=== PATIENT | female | born 1955 | race Caucasian/White ===

== ENCOUNTER 2019-04-01 11:12 | Inpatient (IN) ==
[2019-04-01] MEDS ORDERED: ASPIRIN PO ONE (11:18)
[2019-04-01] MEDS ORDERED: ALBUTEROL NEB INH ONE (11:26)
[2019-04-01] MEDS ORDERED: DUONEB (A & A) INH ONE (11:26)
[2019-04-01] MEDS ORDERED: PULMICORT INH ONE (11:26)
[2019-04-01] MEDS ORDERED: SOLU-MEDROL IV ONE (11:26)
[2019-04-01 12:01] LABS: BASO# 0.04 X1000 (0.0-0.2); BASO% 0.2 % (0.0-0.8); EOS# 0.18 X1000 (0.0-0.7); EOS% 0.8 % (0.0-10.0); HEMATOCRIT 36.9 % (37.0-47.0); IMM GRAN# 0.05 X1000 (0.0-0.04); IMM GRAN% 0.2 % (0.0-0.5); LYMPH# 15.17 X1000 (1.2-3.4); MCH 39.2 PG (27-31); MCHC 35.2 g/dL (33-37); MCV 111.1 FL (81-99); MONO# 1.24 X1000 (0.11-0.59); MONO% 5.7 % (1.7-9.3); MPV 10.1 FL (7.4-10.4); NEUT# 4.99 X1000 (1.4-6.5); NEUT% 23.1 % (42.2-75.2); RBC 3.32 XMIL (4.2-5.4); RDW 15.4 % (11.5-14.5)
[2019-04-01 12:05] LABS: INR 0.88; PROTIME 12.7 Seconds (11.0-16.0)
--- NOTE | 2019-04-01 12:05 | Diag Imaging Result Doc PS360 ---
EXAM: CHEST-2 VIEWS - 04/01/2019 HISTORY: sob TECHNIQUE: Chest two views COMPARISON: None. FINDINGS: Heart size is normal. There are apparent COPD changes. There is small left lower lobe granuloma from old granulomatous disease. There is no consolidation, pleural effusion, or pneumothorax identified. There is thoracic spondylosis noted. IMPRESSION: Apparent COPD changes. No other evidence of acute disease. Electronically signed by Henry Staton 04/01/2019 12:03 PM
[2019-04-01 12:06] LABS: PTT 28.4 Seconds (22.3-41.8)
[2019-04-01 12:22] LABS: ALBUMIN 4.3 g/dL (3.5-5.0); CALCIUM 8.7 mg/dL (8.8-10.2); CREATININE 1.1 mg/dL (0.5-0.9); TOTAL BILIRUBIN 0.61 mg/dL (0.20-1.00); TOTAL PROTEIN 6.5 g/dL (6.3-8.3)
[2019-04-01 12:23] LABS: PLT 205 X1000 (130-400); WBC 21.67 X1000 (4.8-10.8)
[2019-04-01 12:26] LABS: ANISOCYTOSIS 3+; EOS 1 % (1-10); LYMPHS 65 % (21-51); MONO 6 % (1-9); SEGS 26 % (42-75)
[2019-04-01 12:27] LABS: HOWELL-JOLLY BODIES 2+
[2019-04-01] MEDS ORDERED: TYLENOL PO PRN (13:02)
[2019-04-01] MEDS ORDERED: ZOFRAN IV PRN (13:02)
[2019-04-01] MEDS ORDERED: DUONEB (A & A) INH PRN (13:05)
[2019-04-01] MEDS: ZITHROMAX PO SCH (13:44)
[2019-04-01] MEDS: LOVENOX SUBQ SCH (13:44)
[2019-04-01] MEDS: NS 1,000 ML IV SCH ×2 (13:44→20:15)
[2019-04-01] MEDS: ROCEPHIN 1 GM in NS 50 ML IV SCH (13:45)
--- NOTE | 2019-04-01 14:04 | HISTORY AND PHYSICAL ---
CHIEF COMPLAINT: Shortness of breath. HISTORY OF PRESENT ILLNESS: This is a 63-year-old female with a 3-lcxk-k-day history of smoking, COPD, and prior opiate addiction. She presents to the emergency room complaining of about 24 hours of shortness of breath, nasal congestion, headache, cough, and nausea. She states that she was helping her trim crepe myrtle trees yesterday. She carried limbs to a pile, and within a few hours she had nasal stuffiness, felt short of breath, and had some generalized body aches and chills. She denied a productive cough, any chest pain, palpitations, any PND or orthopnea. PAST MEDICAL HISTORY: COPD and leukemia. PAST SURGICAL HISTORY: Hysterectomy, total knee replacement, right ankle surgery. SOCIAL HISTORY: She smokes 2 packs a day of cigarettes. She does use marijuana. She denies any alcohol use. ALLERGIES: No known drug allergies. HOME MEDICATIONS: 1. Suboxone 8/2 mg film 2 films every day. 2. Hydroxyzine 25 mg 1 by mouth twice a day. REVIEW OF SYSTEMS: Discussed with patient with pertinent positives stated in HPI. She denied any syncope, dizziness, chest pain, palpitations, or productive cough; any PND or orthopnea; recent weight loss or weight gain; any night sweats; any vomiting, diarrhea, constipation, black or bloody vomitus or stools; any hematuria, dysuria, frequency, or urgency. PHYSICAL EXAMINATION: GENERAL: This is a 63-year-old female who is sitting up on the stretcher in the emergency room in no distress. VITAL SIGNS: Blood pressure is 113/53 with a heart rate of 71, respirations are 17, temperature is 99.2 degrees oral with O2 saturations that under 92% to 93% on room air and 94% to 95% on 2 L nasal cannula. HEENT: Head is normocephalic, atraumatic. Mucous membranes are moist. NECK: Supple with trachea midline. CARDIOVASCULAR: Regular rate and rhythm. S1 and S2 are appreciated. She has no lower extremity edema. Calves are nontender to palpation bilateral with peripheral pulses palpable x4 extremities. PULMONARY: Breath sounds are diminished throughout. She has prolonged expiration. She does have some faint expiratory wheezes noted primarily in the right upper lobe. Chest rises and falls symmetric with respiration. Chest wall is nontender to palpation. GASTROINTESTINAL: Soft, nontender, nondistended. Bowel sounds in all 4 quadrants. GENITOURINARY: She has no CVA or suprapubic tenderness. SKIN: Warm and dry without rashes or lesions noted. NEUROLOGIC: She is alert and oriented x3. LABORATORY DATA: WBC is 21.6 with hemoglobin 13, hematocrit 36.9, and platelets are 205. INR 0.88. Sodium 142, potassium 4, BUN 14, creatinine 1.1 with a glucose of 119. Troponin is negative. ProBNP is 734. Chest x-ray revealed apparent COPD changes, otherwise no evidence of acute distress. ASSESSMENT AND PLAN: 1. Chronic obstructive pulmonary disease with mild exacerbation. Start DuoNeb q.4 hours or q.2 hours p.r.n. with incentive spirometer every 4 hours. Steroids to taper. Supplemental oxygen as needed. 2. Leukemia. The patient is not undergoing treatment. She states that she has labs drawn every 3 months, and as long as labs stay stable then she will have no further treatment. We will consult Dr. Nancy Lyles in the morning. 3. Leukocytosis. White count is 24. They state that her white count has been lower than 14 over the last few blood tests. We will redraw labs in the morning and as stated above Dr. Nancy Lyles will be consulted. 4. Tobacco use and abuse. She states she smokes 2 packs of cigarettes a day. We will start a nicotine patch as needed I did attempt to discuss smoking cessation with the patient and her and neither were interested in discussing this at this time. For DVT prophylaxis, we will give Lovenox and GI prophylaxis Prilosec. Will have CBC with differential, a CMP, and a PA and lateral chest x-ray in the morning. We will obtain blood cultures x2 as well as urine culture and urinalysis. Further treatments pending hospital course. Dictated by HEBER Gallegos for Gigi Hernandez MD cc: HEBER Gallegos MD
[2019-04-01 14:06] LABS: URINE SOURCE CLEAN CATCH
[2019-04-01 14:09] LABS: BILIRUBIN URINE NEGATIVE (NEGATIVE); BLOOD URINE MODERATE (NEGATIVE); COLOR YELLOW; GLUCOSE URINE NEGATIVE (NEGATIVE); KETONE URINE NEGATIVE (NEGATIVE); LEUKOCYTES URINE SMALL (NEGATIVE); NITRITE URINE NEGATIVE (NEGATIVE); PROTEIN URINE NEGATIVE (NEGATIVE); SP GRAVITY URINE 1.016; TURBIDITY URINE CLEAR (CLEAR); UROBILINOGEN URINE NORMAL (NORMAL)
[2019-04-01 14:10] LABS: UR EPITHELIAL CELLS <10 /HPF (<10); URINE BACTERIA 1+ /HPF; URINE RBC <10 /HPF (<10); URINE WBC <10 /HPF (<10)
--- NOTE | 2019-04-01 14:18 | PROVIDER DOCUMENTATION ---
This chart was entered by Laura Seaman Scribe, acting as scribe for Aldair Mejia MD. HPI-Respiratory General - General Chief Complaint: Shortness of Breath Stated Complaint: SOB Time Seen by Provider: 04/01/19 11:18 Source: patient Allergies/Adverse Reactions: Patient Allergies Allergy/AdvReac Type Severity Reaction Status Date / Time No Known Allergies Allergy Verified 04/01/19 11:50 Home Medications: Home Medication List Medication Instructions Recorded Confirmed Last Taken Type Buprenorphine/Naloxone S.l. 1 ea SL BID #60 film 05/07/18 04/01/19 Rx [Suboxone 8 mg/2 mg Film] Diclofenac Sodium 50 mg PO BID 04/01/19 04/01/19 04/01/19 History Hydroxyzine [Atarax] 25 mg PO BID 04/01/19 04/01/19 04/01/19 History Phenylephrine/Acetaminophn/Cpm 1 ea PO Q12H PRN 04/01/19 04/01/19 04/01/19 History [Allergy Multi-Symptom Cap[place]] - History of Present Illness-Resp Nature of Presenting Problem: 63 y/o female presents to ED with SOB, congestion, headache, cough, and nausea onset yesterday. of pt is at bedside and reports her symptoms began after he cut off a crape myrtle limb yesterday. Pt states she has hx COPD and is a smoker. Pt is alert and oriented. Quality of Pain: reports: none Severity in ED: reports: moderate Onset/Duration: reports: 24 hours ago Timing: reports: still present Context: reports: other (hx COPD) Exposure: reports: other (hx COPD) Cough Quality/Degree: reports: dry cough Episode Frequency: chronic episodes (hx COPD) Current Respiratory Medication Therapy: Initiated see nurses note Modifying Factors: improves with: nothing Associated Symptoms: reports: cough, headache, nasal congestion, shortness of breath, short of breath, other (nausea) Similar Symptoms Previously?: Yes (hx COPD) Recently seen or treated by another doctor?: No Review of Systems - Adult - REVIEW OF SYSTEMS - ADULT Constitutional: denies: chills, fever Eyes: reports: no symptoms reported Ears, Nose, Mouth & Throat: reports: sinus problem (congestion). denies: epistaxis Cardiovascular: denies: chest pain, palpitations Respiratory: reports: cough, shortness of breath Gastrointestinal: reports: nausea. denies: abdominal pain, diarrhea, vomiting Genitourinary: reports: no symptoms reported Musculoskeletal: denies: back pain, joint pain Integumentary: reports: no symptoms reported Neurological: reports: headache/migraines. denies: dizziness/vertigo, seizure Psychiatric: reports: no symptoms reported Endocrine: reports: no symptoms reported Hematologic/Lymphatic: reports: no symptoms reported Allergic/Immunologic: reports: no symptoms reported All Other Systems: Reviewed and Negative Past History - Adult - PAST MEDICAL HISTORY-ADULT Review of Records: reports: Old Records Reviewed, Nursing Assessment Review, Medications Reviewed Major Childhood Illnesses: reports: denies history Cardiovascular: reports: other (hypotension) Respiratory: reports: COPD Gastrointestinal: reports: ulcer Obstetrical/Gynecological: reports: denies history Genitourinary: reports: denies history Musculoskeletal: reports: arthritis, chronic pain (knee) Neurological: reports: denies history Psychiatric: reports: anxiety, depression, other (hx drug abuse) Endocrine/Immune: reports: Leukemia Other Conditions: reports: denies history - PRIOR SURGERIES/PROCEDURES Surgical/Procedure History: reports: hysterectomy, orthopedic (extremity) (R ankle), joint replacement (knee) - IMMUNIZATION STATUS Childhood Immunizations: See Nurse Assessment Flu Vaccine: See Nurse Assessment - FAMILY HISTORY Family History: reviewed, not pertinent - SOCIAL HISTORY Smoking: greater than 1 pack/day Provider spent 3-5 mins advising pt. on dangers of tobacco.: Discussed manners to quit use, and f/u contacts for add'l counseling. Substance Use: none presently/history of abuse (currently taking suboxone), opiates Alcohol Use Frequency: never Living Situation: family Physical Exam-General - PHYSICAL EXAM-ADULT Initial Vital Signs Reviewed: Yes - CONSTITUTIONAL General Appearance: appears well, alert, mild distress - EYES Eyes: PERRL/EOMI, pink conjunctivae - HEAD, EARS, NOSE, MOUTH & THROAT HENMT: normocephalic/atraumatic, moist mucous membranes, normal ENT inspection - RESPIRATORY Respiratory: chest non-tender, lungs clear, normal breath sounds, no pleuratic chest pain, respiratory distress (mild), accessory muscle use, increased rate - CARDIOVASCULAR Cardiovascular: normal peripheral pulses, regular rate, rhythm - MUSCULOSKELETAL Extremity: normal range of motion, non-tender, normal gait, no pedal edema. negative: swelling - SKIN Integumentary: normal color, warm/dry - NEUROLOGIC Neurologic: grossly normal - PSYCHIATRIC Psych/Mental Status: normal mood/affect, normal thought content, normal thought process - HEART Score HEART Score: History: Slightly Suspicious HEART Score: ECG: Normal HEART Score: Age: 45-65 Years HEART Score: Risk Factors for Atherosclerotic Disease: No Risk Factors Known HEART Score: Troponin: < or = Normal Limit Total HEART Score:: 1 Progress - PLAN OF CARE/RESULTS Progress/Plan/Lab Results: Vital Signs - 8 hr 04/01/19 11:14 04/01/19 12:05 04/01/19 12:30 Temperature 99.2 F Pulse Rate 74 63 Respiratory Rate 24 18 18 Blood Pressure 178/50 131/68 131/68 O2 Sat by Pulse Oximetry 98 95 94 L Laboratory Results - last 24 hr 04/01/19 04/01/19 04/01/19 11:45 11:45 11:45 WBC 21.67 H RBC 3.32 L Hgb 13.0 Hct 36.9 L MCV 111.1 H MCH 39.2 H MCHC 35.2 RDW Std Deviation 15.4 H Plt Count 205 MPV 10.1 Immature Gran % (Auto) 0.2 Neut % (Auto) 23.1 L Lymph % (Auto) 70.0 H [place] % (Auto) 5.7 Eos % (Auto) 0.8 Baso % (Auto) 0.2 Immature Gran # (Auto) 0.05 H Neut # (Auto) 4.99 Lymph # (Auto) 15.17 H [place] # (Auto) 1.24 H Eos # (Auto) 0.18 Baso # (Auto) 0.04 Segmented Neutrophils 26 L Lymphocytes 65 H Monocytes 6 Eosinophils 1 Pathologist Review Atypical Lymphocytes 2.0 Anisocytosis 3+ Macrocytosis 3+ [place] Bodies 2+ PT INR PTT (Actin FS) Sodium 142 Potassium 4.0 Chloride 106 Carbon Dioxide 23 L Anion Gap 13 BUN 14 Creatinine 1.1 H Estimated GFR/1.73 m2 50 BUN/Creatinine Ratio 13 Glucose 119 H Calculated Osmolality 285 Calcium 8.7 L Total Bilirubin 0.61 AST 35 H ALT 28 Alkaline Phosphatase 126 H Creatine Kinase 99 Troponin T Nfv-[id number]-Lybwfrojxdh Pept 734 H Total Protein 6.5 Albumin 4.3 Globulin 2.2 Albumin/Globulin Ratio 2.0 04/01/19 04/01/19 11:45 11:45 WBC RBC Hgb Hct MCV MCH MCHC RDW Std Deviation Plt Count MPV Immature Gran % (Auto) Neut % (Auto) Lymph % (Auto) [place] % (Auto) Eos % (Auto) Baso % (Auto) Immature Gran # (Auto) Neut # (Auto) Lymph # (Auto) [place] # (Auto) Eos # (Auto) Baso # (Auto) Segmented Neutrophils Lymphocytes Monocytes Eosinophils Pathologist Review Atypical Lymphocytes Anisocytosis Macrocytosis [place] Bodies PT 12.7 INR 0.88 PTT (Actin FS) 28.4 Sodium Potassium Chloride Carbon Dioxide Anion Gap BUN Creatinine Estimated GFR/1.73 m2 BUN/Creatinine Ratio Glucose Calculated Osmolality Calcium Total Bilirubin AST ALT Alkaline Phosphatase Creatine Kinase Troponin T < 0.010 Oai-Z-Gfxmzrhwhny Pept Total Protein Albumin Globulin Albumin/Globulin Ratio Orders Category Date Time Status Cardiac Monitoring DIRECTED Care 04/01/19 11:18 Active Oxygen Therapy- ED Nursing DIRECTED Care 04/01/19 11:18 Active Saline Loc NOW Care 04/01/19 11:18 Active CHEST-2 VIEWS [RAD] Stat Exams 04/01/19 11:18 Completed CBC WITH ELECTRONIC DIFF [HEME] Stat Lab 04/01/19 11:45 Completed CK PROFILE [SP CHEM] Stat Lab 04/01/19 11:45 Completed COMPREHENSIVE METABOLIC PANEL [CHEM] Stat Lab 04/01/19 11:45 Completed PRO B-NATRIURETIC PEPTIDE Stat Lab 04/01/19 11:45 Completed PROTIME WITH INR [COAG] Stat Lab 04/01/19 11:45 Completed PTT [COAG] Stat Lab 04/01/19 11:45 Completed TROPONIN T Stat Lab 04/01/19 11:45 Completed Albuterol 2.5MG/Ipratrop 0.5MG [Duoneb (A & A)] Med 04/01/19 11:26 Discontinued 3 ml INH NOW ONE Albuterol [Albuterol Neb] Med 04/01/19 11:26 Discontinued 5 mg INH NOW ONE Aspirin Med 04/01/19 11:18 Discontinued 325 mg PO NOW ONE Budesonide [Pulmicort] Med 04/01/19 11:26 Discontinued 0.5 mg INH NOW ONE Methylprednisolone Sod Succ [Solu-Medrol] Med 04/01/19 11:26 Discontinued 125 mg IV NOW ONE Aerosol Treatments Routine Oth 04/01/19 11:26 Completed Aerosol Treatments Stat Oth 04/01/19 11:26 Completed CP/SOB/Palp >45 yrs of Age Stat Oth 04/01/19 11:18 Ordered EKG [EKG] Stat Ther 04/01/19 11:18 Ordered Result Diagrams: 04/01/19 11:45 04/01/19 11:45 - EKG 1 Time of EKG reading by physician:: 11:25 EKG Read and Signed by:: Aldair Mejia EKG Interpretation (*Must complete 3 of following elements*): Abnormal Rate: 59 Rhythm: Junctional [place]: normal QRS: normal [place] Interval: normal ST Wave: normal - XRAY 1 XRAY Study: Chest Impression: Abnormal ([facility] [address] [facility] [address], [address], [place] [address] Department of Imaging Patient: MARY ADKINSADM Date: 04/01/19#: [id number] : 1955DM Status: [facility]#: [id number] Age/Sex: 63/FRoom/Bed: Loc: ED Ordering Physician: Aldair Mejia MD Family Physician: Rich Rossi Reason for Procedure: sob Signed EXAM: CHEST-2 VIEWS - 04/01/2019 HISTORY: sob TECHNIQUE: Chest two views COMPARISON: None. FINDINGS: Heart size is normal. There are apparent COPD changes. There is small left lower lobe granuloma from old granulomatous disease. There is no consolidation, pleural effusion, or pneumothorax identified. There is thoracic spondylosis noted. IMPRESSION: Apparent COPD changes. No other evidence of acute disease. Electronically signed by Henry Staton 04/01/2019 12:03 PM 04/01/19 1203 Interpreting Physician: Henry Staton MD Dictated Date/Time: 04/01/19 1202 cc: Aldair Mejia MD; Rich Rossi) - CONSULTS/PCP/HOSPITALIST Notification #1 *Consult/PCP/Hospitalist*: HEBER Mes[place] for hospitalist Time Discussed: 12:46 Reason/Comments: COPD exacerbation; elevated WBC Consult Disposition: Admit Departure - Departure Date of Disposition Decision: 04/01/19 Time of Disposition Decision: 12:14 DIAGNOSIS: COPD exacerbation Disposition: ADMITTED INPATIENT 09 Certified Medical Emergency: Emergent Condition: Good Additional Freetext Instructions: ED Follow Up Instructions: You have been treated by a care provider in the Emergency Department. These instructions are being provided to you so you can have an understanding of how to care for yourself upon discharge. Upon discharge from the Emergency Department, you are responsible for making arrangements for follow-up care by a physician of your choice. Take all prescribed medications as directed. Return to the Emergency Department immediately for any new or worsening symptoms. You may call the Physician Referral phone number at [phone] to obtain a list of Physicians who are taking new patients. Referrals and Follow-Ups: Rich Rossi [Primary Care Provider] - Discharge Education: Steps to Quit Smoking, [id number] - Critical Care Note This patient required my direct & personal management of CC.: No Attestation - Physician/ BRIA Attestation Patient care was provided by Advanced Practice Provider:: No The physician spent face to face time with patient:: Yes Advanced Practice Provider documentation review:: Supervising physician onsite and consulted in the evaluation and care of this patient. The physician did have a face to face encounter with the patient. This chart was documented by the indicated scribe, (Laura Seaman Scribe) and accurately reflects the services I performed and decisions made by me, Aldair Mejia MD, as attested by the provider's signature.
[2019-04-01] MEDS ORDERED: XOPENEX NEB INH PRN (14:48)
[2019-04-01] MEDS ORDERED: NS NEB INH PRN (15:00)
[2019-04-01] MEDS: NICODERM PATCH TD PRN (15:25)
[2019-04-01] MEDS ORDERED: DUONEB (A & A) INH SCH (15:30)
[2019-04-01] MEDS: ATROVENT NEB INH SCH ×3 (16:01→23:10)
[2019-04-01] MEDS: XOPENEX NEB INH SCH ×3 (16:01→23:10)
[2019-04-01] MEDS: SOLU-MEDROL IV SCH (20:15)
[2019-04-02] MEDS: XOPENEX NEB INH SCH ×6 (03:00→22:30)
[2019-04-02] MEDS: ATROVENT NEB INH SCH ×6 (03:00→22:30)
[2019-04-02] MEDS: NS 1,000 ML IV SCH ×3 (04:29→17:39)
[2019-04-02] MEDS: SOLU-MEDROL IV SCH ×2 (04:49→17:39)
[2019-04-02] MEDS: PRILOSEC PO SCH (06:25)
--- NOTE | 2019-04-02 07:39 | EKG Report ---
Test Performed on : 04/01/2019 11:25:49 AM Test Reason : sob Blood Pressure : / mmHG Vent. Rate : 059 BPM Atrial Rate : 058 BPM P-R Int : 000 ms QRS Dur : 078 ms QT Int : 408 ms P-R-T Axes : 000 073 065 degrees QTc Int : 403 ms Junctional rhythm. Abnormal ECG No previous ECGs available Unconfirmed Result
--- NOTE | 2019-04-02 07:48 | Diag Imaging Result Doc PS360 ---
EXAM: CHEST-2 VIEWS HISTORY: COPD exacerbation, leukocytosis TECHNIQUE: Chest two views COMPARISON: 04/01/2019 FINDINGS: The lungs are hyperexpanded. The heart is not enlarged. The vessels are not distended. There are no infiltrates. No pleural effusions. The overall appearance is similar to the prior exam. IMPRESSION: Emphysema. No definite pneumonia. Electronically signed by Bob Jamil 04/02/2019 7:46 AM
[2019-04-02 08:05] LABS: BASO# 0.01 X1000 (0.0-0.2); BASO% 0.1 % (0.0-0.8); HEMATOCRIT 31.1 % (37.0-47.0); HEMOGLOBIN 10.9 g/dL (12.0-16.0); IMM GRAN# 0.03 X1000 (0.0-0.04); IMM GRAN% 0.2 % (0.0-0.5); LYMPH# 10.81 X1000 (1.2-3.4); MCH 39.2 PG (27-31); MCV 111.9 FL (81-99); MONO# 0.49 X1000 (0.11-0.59); MONO% 2.9 % (1.7-9.3); MPV 10.6 FL (7.4-10.4); NEUT# 5.56 X1000 (1.4-6.5); NEUT% 32.8 % (42.2-75.2); PLT 165 X1000 (130-400); RBC 2.78 XMIL (4.2-5.4); RDW 15.3 % (11.5-14.5)
[2019-04-02 08:16] LABS: ALB/GLOB RATIO 1.8; ALBUMIN 3.8 g/dL (3.5-5.0); CALCIUM 8.5 mg/dL (8.8-10.2); POTASSIUM 3.9 mmol/L (3.5-5.1); TOTAL BILIRUBIN 0.28 mg/dL (0.20-1.00); TOTAL PROTEIN 5.9 g/dL (6.3-8.3)
[2019-04-02] MEDS ORDERED: SUBOXONE 8 MG/2 MG FILM SL SCH (09:00)
[2019-04-02 09:36] LABS: BANDS 8 % (0-1); LYMPHS 31 % (21-51); MONO 3 % (1-9); SEGS 57 % (42-75)
[2019-04-02] MEDS: ZITHROMAX PO SCH (09:56)
[2019-04-02] MEDS: ATARAX PO SCH ×2 (09:56→20:37)
[2019-04-02] MEDS: SUBOXONE 8 MG/2 MG SL SCH ×2 (09:56→20:36)
[2019-04-02] MEDS: NICODERM PATCH TD PRN (12:39)
[2019-04-02] MEDS: ROCEPHIN 1 GM in NS 50 ML IV SCH (14:16)
[2019-04-02] MEDS: LOVENOX SUBQ SCH (14:17)
--- NOTE | 2019-04-02 21:29 | PROGRESS NOTE ---
DATE: 04/02/2019 SUBJECTIVE: This patient is lying comfortably in bed. She is still complaining of shortness of breath but compared with yesterday she feels better. Her WBC decreased from 21 to 16, pending Hematology/Oncology Department evaluation and recommendations. OBJECTIVE: Vital signs: Temperature 97.4, pulse 81, respiratory rate 15, blood pressure 125/54, oxygen saturation 96% on 1.5 L nasal cannula. HEENT: Head is normocephalic, no trauma. PERRLA. Neck: Supple. No JVD. No masses. Central trachea. Chest: Decreased breath sounds globally with prolonged expiratory phase, coarse breath sounds bilaterally, mostly at the bases. No wheezing today. Abdomen: Soft, nondistended and nontender. No hepatosplenomegaly. Extremities: No edema. No clubbing. No cyanosis. Neurologic: The patient is alert and oriented x3. She is hard of hearing. LABORATORY DATA: WBC 16.9, hemoglobin 10.9, hematocrit 31.1, and platelets 165. Sodium 140, potassium 3.9, chloride 109, bicarbonate 21, BUN 14, creatinine 1, glucose 163, calcium 8.5, AST 23, ALT 24, alkaline phosphatase 69, albumin 3.8. ASSESSMENT AND PLAN: 1. Chronic obstructive pulmonary disease exacerbation. Continue breathing treatments, oxygen supplementation, and I have decreased the dose of steroids to 40 mg twice a day intravenously. Hopefully tomorrow we can switch it to oral and if she is feeling better, probably she can go home. 2. Leukemia. This patient is not undergoing treatment. Apparently she has been getting some labs drawn every three months and she has been stable. We consulted already Dr. Nancy Lyles to evaluate this patient. 3. Leukocytosis. White blood cell count decreased from 21 to 16, will continue with same management. Will continue to monitor this patient closely. 4. Tobacco use and abuse. This patient has been advised against tobacco use. We will continue with daily cessation education. It looks like she smokes at least two packs a day. cc: Gigi Hernandez MD
[2019-04-03] MEDS: NS 1,000 ML IV SCH ×3 (01:48→21:26)
[2019-04-03] MEDS: XOPENEX NEB INH SCH ×6 (03:12→23:30)
[2019-04-03] MEDS: ATROVENT NEB INH SCH ×6 (03:12→23:30)
[2019-04-03] MEDS: SOLU-MEDROL IV SCH ×2 (04:49→17:31)
[2019-04-03] MEDS: PRILOSEC PO SCH (06:32)
[2019-04-03 07:38] LABS: BASO# 0.01 X1000 (0.0-0.2); HEMATOCRIT 33.1 % (37.0-47.0); HEMOGLOBIN 11.2 g/dL (12.0-16.0); IMM GRAN# 0.06 X1000 (0.0-0.04); IMM GRAN% 0.3 % (0.0-0.5); LYMPH# 9.92 X1000 (1.2-3.4); LYMPH% 47.4 % (20.5-51.1); MCH 38.5 PG (27-31); MCHC 33.8 g/dL (33-37); MCV 113.7 FL (81-99); MONO# 0.59 X1000 (0.11-0.59); MONO% 2.8 % (1.7-9.3); MPV 10.5 FL (7.4-10.4); NEUT# 10.37 X1000 (1.4-6.5); NEUT% 49.5 % (42.2-75.2); PLT 177 X1000 (130-400); RBC 2.91 XMIL (4.2-5.4); RDW 15.9 % (11.5-14.5); WBC 20.95 X1000 (4.8-10.8)
[2019-04-03 07:50] LABS: AGAP 10; ALB/GLOB RATIO 1.9; ALBUMIN 4.1 g/dL (3.5-5.0); ALKALINE PHOSPHATASE 96 U/L (32-104); BUN 15 mg/dL (8-22); CALCIUM 8.9 mg/dL (8.8-10.2); CHLORIDE 110 mmol/L (98-107); COSMO 282; CREATININE 0.9 mg/dL (0.5-0.9); ESTIMATED GFR > 60; GLUCOSE 134 mg/dL (70-104); GOT 28 U/L (10-30); GPT 30 U/L (10-36); POTASSIUM 4.5 mmol/L (3.5-5.1); SODIUM 140 mmol/L (136-145); TCO2 20 mmol/L (25-35); TOTAL BILIRUBIN 0.34 mg/dL (0.20-1.00); TOTAL PROTEIN 6.3 g/dL (6.3-8.3)
[2019-04-03 08:06] LABS: BANDS 4 % (0-1); LYMPHS 46 % (21-51); MONO 2 % (1-9); SEGS 48 % (42-75)
[2019-04-03 08:08] LABS: HYPOCHROM 1+
[2019-04-03] MEDS: ATARAX PO SCH ×2 (09:01→21:31)
[2019-04-03] MEDS: ZITHROMAX PO SCH (09:01)
[2019-04-03] MEDS: SUBOXONE 8 MG/2 MG SL SCH ×2 (09:35→21:31)
[2019-04-03] MEDS: NICODERM PATCH TD PRN (11:53)
[2019-04-03] MEDS: LOVENOX SUBQ SCH (14:18)
[2019-04-03] MEDS: ROCEPHIN 1 GM in NS 50 ML IV SCH (14:18)
[2019-04-04] MEDS: XOPENEX NEB INH SCH (03:28)
[2019-04-04] MEDS: ATROVENT NEB INH SCH (03:28)
[2019-04-04] MEDS: SOLU-MEDROL IV SCH (04:47)
[2019-04-04] MEDS: NS 1,000 ML IV SCH ×2 (04:52→09:42)
[2019-04-04] MEDS: PRILOSEC PO SCH (06:21)
[2019-04-04 07:39] VITALS: BP 161/77
[2019-04-04] MEDS: ZITHROMAX PO SCH (09:41)
[2019-04-04] MEDS: SUBOXONE 8 MG/2 MG SL SCH (09:41)
[2019-04-04] MEDS: ATARAX PO SCH (09:41)
--- NOTE | 2019-04-04 18:09 | HEMO/ONC CONSULTATION ---
DATE: 04/02/2019 REQUESTING PHYSICIAN: Gigi Hernandez MD REASON FOR CONSULTATION: Leukemia/leukocytosis. HISTORY OF PRESENT ILLNESS: Ms. Rice is a pleasant 63-year-old female who is well known to Dr. Kingston, with history of chronic lymphocytic leukemia, currently on observation. She presented to [facility] with complaints of congestion, cough, headache and nausea x1 day. Chest x-ray revealed apparent COPD changes. Noted white blood cell count on admission was 21.67. Upon further review in clinic, Ms. Rice's white count was noted to be at 27.5 on 03/21/2019. We have been asked to further evaluate. PAST MEDICAL HISTORY: 1. COPD. 2. Chronic lymphocytic leukemia, Yadav stage 0, [id number]. 3. Tobacco abuse. PAST SURGICAL HISTORY: 1. Total hysterectomy. 2. Right knee replacement. 3. Right ankle surgery. SOCIAL HISTORY: She is a current smoker, smoking approximately 2 packs of cigarettes per day. She does use occasional marijuana. Denies any alcohol or illicit drug use. ALLERGIES: No known drug allergies. HOME MEDICATIONS: 1. Suboxone 8 mg/2 mg film 1 sublingual b.i.d. 2. Atarax 25 mg p.o. b.i.d. 3. Allergy multisymptom tablet 1 tablet p.o. q. 12 hours p.r.n. 4. Baclofen 50 mg p.o. b.i.d. FAMILY HISTORY: No known bleeding or clotting disorders. REVIEW OF SYSTEMS: Twelve-point review of systems reviewed and negative except as mentioned above in HPI. PHYSICAL EXAMINATION: Vital signs: Temperature 97.4 degrees, respirations 16, pulse 78, blood pressure 125/54, O2 saturation 96% on 1.5 L nasal cannula. LABORATORY DATA: White blood cell count 16.90, hemoglobin 10.9, hematocrit 31.1, platelets 165,000. Sodium 140, potassium 3.9, chloride 109, CO2 is 21, BUN 14, creatinine 1.0, glucose 163, calcium 8.5. Microbiology: Urine culture pending. Blood culture pending. DIAGNOSTIC DATA: Chest x-ray 04/01/2019 impression: Apparent COPD changes. No other evidence of acute disease. Chest x-ray 04/02/2019 impression: Emphysema. No definite pneumonia. ASSESSMENT AND PLAN: 1. Chronic lymphocytic leukemia, Yadav stage 0. She is currently in observation with no clinical indications for treatment. White blood cell count has currently trended down to 16.90. This is within her normal variation and improving. We will continue to monitor closely. 2. Leukocytosis secondary to #1. White blood cell count stable and improved. Continue to monitor. 3. Chronic obstructive pulmonary disease with mild exacerbation. Continue steroids, nebulizers, incentive spirometry and supplemental oxygen per primary, and continue to monitor. 4. Tobacco abuse. Continue NicoDerm patch daily. Smoking cessation has been encouraged. The above findings represent the assessment and plan of Dr. Gilberto Kingston. Thank you for allowing us to participate in the care of this patient. We will follow closely. Dictated by HEBER Rodney for Gilberto Kingston MD cc: HEBER Rodney MD
--- NOTE | 2019-04-05 14:51 | DISCHARGE SUMMARY ---
ADMISSION DATE: 04/01/2019 DISCHARGE DATE: 04/04/2019 DISCHARGE DIAGNOSES: 1. Chronic obstructive pulmonary disease exacerbation. 2. Viral upper respiratory tract infection. 3. Leukemia, likely chronic lymphocytic leukemia. 4. Tobacco abuse. 5. Chronic pain. 6. History of opiate addiction. HOSPITAL COURSE: The patient presented with a little over a day of dyspnea, wheezing, nonproductive cough, nasal congestion, headache, nausea. Initial evaluation did show significant leukocytosis, but was negative for pneumonia. She does have wheezing and decreased air entry and was placed on steroids and DuoNeb. She improved slowly. On the day of discharge, her dyspnea was resolved. She was no longer wheezing. She did still have some nonproductive cough. Due to lack of other infectious findings, she was favored to have viral upper respiratory tract infection and possibly a component of allergies leading to her COPD exacerbation. She will be discharged with a short oral steroid taper and to continue her home albuterol inhaler if needed. She was also strongly counseled on smoking cessation and offered a nicotine patch prescription at discharge. The patient's leukocytosis was thought to be a consequence of her recent diagnosis of leukemia. The patient is uncertain exactly what her diagnosis is, but strongly suspect CLL as she was told that her leukemia was "the good kind." Her leukocytosis waxed and waned, but was roughly stable over the admission. She was discharged home in stable condition to follow up with her PCP. DISCHARGE VITAL SIGNS: Temperature 98 degrees, pulse 60, respirations 20, blood pressure 161/77, O2 saturation 95% on room. DISCHARGE DIET: Regular. DISCHARGE MEDICATIONS: [id number]-[id number] allergy medicine as previously taken. Hydroxyzine 25 mg p.o. b.i.d. p.r.n. Diclofenac 50 mg p.o. b.i.d. p.r.n. Albuterol inhaler as needed. Medrol Dosepak as directed. Nicotine patch 21 mg daily. Suboxone 8/2 b.i.d. as previously prescribed. FOLLOW-UP AND PLAN: Patient discharging home to follow up with PCP. Short steroid taper. Albuterol inhaler as needed. Recommend she continue nicotine patch for assistance with tobacco cessation. Continue home pain medications. COORDINATION TIME: Greater than 30 minutes spent arranging discharge and counseling patient.
--- NOTE | 2019-04-05 19:52 | PROGRESS NOTE ---
DATE: 04/03/2019 INTERVAL HISTORY: Patient with stable oxygenation. Still some intermittent significant coughing which is nonproductive, and some wheezing, but improving slowly. No new complaints. No acute events overnight. REVIEW OF SYSTEMS: Twelve-point review of systems is negative except as per interval history. LABORATORY DATA: WBCs 20.9, hemoglobin 11.2, hematocrit 33.1, platelets 177. Basic metabolic panel is essentially unremarkable. PHYSICAL EXAMINATION: Vital Signs: T max 98.3, pulse 65, respirations 19, blood pressure 132/52, 02 saturation 100% on room air. General: No acute distress. HEENT: Normocephalic, atraumatic. Moist mucous membranes. Neck: No cervical lymphadenopathy. Cardiovascular: Regular rate and rhythm. No murmurs noted. Pulmonary: Reasonable air entry throughout but still with significant expiratory wheezing. No rales or rhonchi noted. Abdomen: Soft, nontender, nondistended. Bowel sounds positive. Extremities: Peripheral pulses intact. No clubbing or cyanosis. Neurologic: Cranial nerves grossly intact. No focal deficits identified. Psychiatric: Normal mood and affect. Awake, alert and oriented x3. Skin: No new rashes or lesions identified. ASSESSMENT/PLAN: 1. Chronic obstructive pulmonary disease exacerbation. The patient has some improvement but still some significant wheezing. Continue steroids at current dose and nebulizers as needed. If he continues to improve, then may be able to transition to p.o. and discharge home tomorrow. 2.Leukemia, reportedly indolent course, not on treatment. Likely no need for acute intervention at this time, although may be contributing to leukocytosis. Follows with oncology. 3. Tobacco use. Strongly counseled on cessation. The patient has been offered a nicotine patch.
== END 2019-04-04 14:20 | disposition home or self-care (01) | DRG 191 ==
LOC: ED 11:12 → SUATTDRO 13:07 → 3N 13:07
PROVIDERS: ATTEND Internal Medicine
CPT/HCPCS: 71020; 71046; 80053; 81001; 82550; 83605; 83880; 84484; 85025; 85610; 85730; 87040; 87088; 93005; 94640; 94761; 94799; 96372; 96374; 96375; 99285; A9270; J0696; J1650; J2920; J2930; J7030